=== PATIENT | male | born 1950 | race Two or more races ===

== ENCOUNTER 2024-11-30 15:41 | Emergency (ER) | payer MEDICARE, MEDICAID ==
[~2024-11-30] VITALS: Ht 167.6 cm; Wt 66.2 kg
[2024-11-30 15:49] VITALS: BP 135/76; PULSE 71; RESP 18; O2SAT 98
--- NOTE | 2024-11-30 17:05 | DVH ---
CLINICAL INDICATION: fall TECHNIQUE: 3 radiographic views of the left knee were obtained. Comparison: None FINDINGS/IMPRESSION: There is no evidence of acute fracture or dislocation. Narrowing of the medial compartment of the left knee is noted with chondrocalcinosis of the lateral m eniscus. The alignment is anatomical. There is no radiopaque foreign body. HS:Y
--- NOTE | 2024-11-30 17:13 | DVH ---
EXAM: CT HEAD WITHOUT CONTRAST HISTORY: fall COMPARISON: None TECHNIQUE: Axial images of the head were obtained and reformatted in coronal and sagittal planes. All CT scans at this medical facility are performed using dose modulation techniques as appropriate t o a performed exam including the following: Automated exposure control was utilized; adjustment of th e MA and/or KV according to patient size; and use of iterative reconstruction technique. CT Dose: CTDI volume is 54 mGy. Dose-length product is 971 mGy*cm FINDINGS: There is no evidence of acute intracranial hemorrhage, mass, mass effect midline shift. There is no h ydrocephalus or extra-axial fluid collection. 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 Mayo-white matter differentiation is otherwise maintained. The visualized paranasal sinuses and mastoid air cells are clear. The calvarium is intact. IMPRESSION: 1. No acute intracranial process. 2. 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 HS:Y
--- NOTE | 2024-11-30 18:09 | ED.PDOC ---
History of Present Illness HPI Comments 74-year-old male complaining of neck pain and left knee pain after having a fall five days ago. States he was carrying groceries in when he tripped falling to his right side hitting his left knee. Patient denies any loss of consciousness. States over the last few days he was feeling tightness in his neck and in his knee. Denies being on blood thinners. Chief Complaint: Fall Injury Time Seen by MD: 15:46 Primary Care Provider: ELSA Coronado Notes: Nurses Notes Allergies: Coded Allergies: NO KNOWN ALLERGIES (Unverified , 11/30/24) Information Source: Patient Mode of Arrival: Ambulatory Severity: Mild Timing: Days (5) Past Medical History PAST MEDICAL HISTORY: Denies Surgical History: Denies all surgeries Family History Family History: Reviewed,noncontributory to illness, No family hx of Cancer, No family hx of DM, No family hx of Heart patrizia, No family hx of HTN, No family hx ofKidney patrizia, No family hx of Liver patrizia, No family hx of Lung patrizia, No family hx of Stroke Constitutional: denies: chills, diaphoresis, fatigue, fever, malaise, sweats, weakness, others EENTM: denies: blurred vision, double vision, ear bleeding, ear discharge, ear drainage, ear pain, ear ringing, eye pain, eye redness, hearing loss, mouth pain, mouth swelling, nasal discharge, nose bleeding, nose congestion, nose pain, photophobia, tearing, throat pain, throat swelling, voice changes, others Respiratory: denies: cough, hemoptysis, orthopnea, SOB at rest, shortness of breath, SOB with excertion, stridor, wheezing, others Cardiovascular: denies: chest pain, dizzy spells, diaphoresis, Dyspnea on exertion, edema, irregular heart beat, left arm pain, lightheadedness, palpitations, PND, syncope, others Gastrointestinal: denies: abdomen distended, abdominal pain, blood streaked bowels, constipated, diarrhea, dysphagia, difficulty swallowing, hematemesis, melena, nausea, poor appetite, poor fluid intake, rectal bleeding, rectal pain, vomiting, others Musculoskeletal: reports: muscle pain, muscle stiffness Physical Exam General Appearance: No Apparent Distress, Normal HEENT: Normal ENT Inspection, Pharynx Normal, TMs Normal Neck: Full Range of Motion, Non-Tender, Normal, Normal Inspection Respiratory: Chest Non-Tender, Lungs Clear, No Accessory Muscle Use, No Respiratory Distress, Normal Breath Sounds Cardiovascular: No Edema, No JVD, No Murmur, No Gallop, Normal Peripheral Pulses, Regular Rate/Rhythm Breast Exam: Deferred Gastrointestinal: No Organomegaly, Non Tender, No Pulsatile Mass, Normal Bowel Sounds, Soft Genitalia: Deferred Pelvic: Deferred Rectal: Deferred Extremities: No calf tenderness, Normal capillary refill, Normal inspection, Normal range of motion, Non-tender, No pedal edema, Other (Able to ambulate without assistance. No obvious swelling noted to the left anterior knee) Musculoskeletal : Apperance: Normal Neurologic: Alert, change house attendant II-XII nml as Tested, No Motor Deficits, Normal Affect, Normal Mood, No Sensory Deficits Cerebellar Function: Normal Reflexes: Normal Skin: Dry, Normal Color, Warm Lymphatic: No Adenopathy Was a procedure done? Was a procedure done?: No Differential Dx Considerations may include: CVA, closed head injury, knee contusion, X-Ray, Labs, Meds, VS Vital Signs Date Time Temp Pulse Resp B/P (MAP) Pulse Ox O2 Delivery O2 Flow Rate FiO2 11/30/24 15:49 97.4 71 18 135/76 (95) 98 X-Ray, Labs, Meds, VS Comment Imaging: X-rays and CT scans were reviewed and interpreted by this provider, imaging shows no fractures and no pathological disease. Pending radiology review. Laboratory: Labs reviewed and interpreted by this provider. No significant abnormalities noted. Patient has prior medical visits reviewed. Med reconciliation performed Vital signs reviewed Time of 1ST Reevaluation: 18:08 Reevaluation 1ST: Improved Patient Education/Counseling: Diagnosis, Treatment, Need For Follow Up (Patient advised to follow-up in the emergency room in the next 24 to 48 hours if symptoms do not improve. Advised follow-up with PCP in the next 3 to 5 days. Patient verbalized understanding. ) Family Education/Counseling: Diagnosis, Treatment Departure 1 Departure Time of Disposition: 18:08 Impression: Primary Impression: Back strain Qualified Codes: S39.012A - Strain of muscle, fascia and tendon of lower back, initial encounter Additional Impression: Contusion of left knee Qualified Codes: S80.02XA - Contusion of left knee, initial encounter Disposition: 01 HOME / SELF CARE / HOMELESS Condition: Fair Discharged With: Self Critical Care Note Critical Care Time?: No Stability Stability form required: No Heart Score Heart Score: Heart Score Response (Comments) Value History N/A 0 EKG N/A 0 Age N/A 0 Risk Factors N/A 0 Troponin N/A 0 Total 0 CHETAN REYNA Nov 30, 2024 18:09
[2024-12-02] MEDS ORDERED: METF-370 PO (11:02)
[2024-12-02] MEDS ORDERED: DICL1GEL59 EX (11:02)
[2024-12-02] MEDS ORDERED: MULT-928 PO (11:02)
[2024-12-02] MEDS ORDERED: TAMS0.4C39 PO (11:02)
[2024-12-02] MEDS ORDERED: CHOL20007 PO (11:02)
[2024-12-02] MEDS ORDERED: GLIP5TAB21 PO (11:02)
[2024-12-02] MEDS ORDERED: TRAM50TA2 PO (11:02)
[2024-12-02] MEDS ORDERED: ACET650T12 PO (11:02)
[2024-12-02] MEDS ORDERED: METO-6 PO (11:02)
[2024-12-02] MEDS ORDERED: FIN5T PO (11:02)
[2024-12-02] MEDS ORDERED: MAGN1TAB29 PO (11:02)
[2024-12-02] MEDS ORDERED: LISI-275 PO (11:02)
[2024-12-02] MEDS ORDERED: DONE5TAB11 PO (11:02)
[2024-12-02] MEDS ORDERED: DONE10TA9 PO (11:02)
[2024-12-02] MEDS ORDERED: ROSU40TA81 PO (11:02)
[2024-12-02] MEDS ORDERED: PANT40TA2 PO (11:02)
[2024-12-02] MEDS ORDERED: FERR325T24 PO (11:02)
[2024-12-02] MEDS ORDERED: ASPI-543 PO (11:30)
== END 2024-11-30 18:20 | disposition home or self-care (01) ==
LOC: ER 15:41
DX: S39.012A Strain of muscle, fascia and tendon of lower back, initial encounter (principal); S80.02XA Contusion of left knee, initial encounter; W01.0XXA Fall on same level from slipping, tripping and stumbling without subsequent striking against object, initial encounter; Y93.89 Activity, other specified; Y92.89 Other specified places as the place of occurrence of the external cause; Y99.8 Other external cause status
CPT/HCPCS: 70450; 73562

== ENCOUNTER 2024-12-03 10:08 | Day surgery (SDC) | payer MEDICARE, MEDICAID ==
[2024-12-02 11:57] LABS: Urine Bacteria None Seen /hpf (None Seen)
[2024-12-02 12:12] LABS: Urine Blood Negative /uL (Negative); Urine Clarity Clear (Clear); Urine Color Yellow (Yellow); Urine Protein, UAD TRACE (Negative); Urine Specific Gravity 1.023 (1.001-1.035); Urine Squamous Epithelial Cell None Seen /hpf (<5); Urine Urobilinogen Normal (Negative); Urine WBC <1 /hpf (0 - 3); Urine pH 5.5 (5.0-9.0)
[2024-12-02 12:19] LABS: INR 1.02 (0.9-1.15); Partial Thromboplastin Time 27.5 SEC (24.5-34.5); Prothrombin Time 10.8 sec (9.3-11.8)
[~2024-12-03] VITALS: Ht 167.6 cm; Wt 65.3 kg
[~2024-12-03 10:08] MED LIST: ACET650T12 PO; ASPI-543 PO; CHOL20007 PO; DICL1GEL59 EX; DONE10TA9 PO; DONE5TAB11 PO; FERR325T24 PO; FIN5T PO; GLIP5TAB21 PO; LISI-275 PO; MAGN1TAB29 PO; METF-370 PO; METO-6 PO; MULT-928 PO; PANT40TA2 PO; ROSU40TA81 PO; TAMS0.4C39 PO; TRAM50TA2 PO
[2024-12-03] MEDS ORDERED: PROPOFOL 10 MG/ML 20 ML IV ONE (10:36)
[2024-12-03] MEDS ORDERED: fentaNYL CITRATE 100 MCG/2 ML VL ONE (10:36)
[2024-12-03] MEDS ORDERED: ePHEDrine SULFATE 50 MG/ML AMP ONE (11:33)
[2024-12-03 11:48] VITALS: PULSE 84; RESP 13; TEMP 96.5; O2SAT 98
[2024-12-03 12:50] VITALS: BP 137/78; PULSE 76; RESP 17; O2SAT 97
--- NOTE | 2024-12-03 15:15 | DVHOP2 ---
Operative Report DATE OF OPERATION: 12/03/24 PROCEDURE: Upper Endoscopy with biopsy. PREOPERATIVE INDICATION: The patient is a 74 -year-old male undergoing endoscopy for anemia POSTOPERATIVE DIAGNOSES: 1. 2 cm sliding-type hiatal hernia slightly irregular squamocolumnar junction no significant erosive esophagitis 2. Mild gastritis and lmai-[id number]-[id number] duodenitis of the duodenal bulb PROCEDURE PERFORMED BY: Sae Delcid GI NURSE: Courtney SCOPE: Olympus videoendoscope. ASA CLASS: 2 PREOPERATIVE MEDICATIONS: Mac pasha, Dr. Jiménez PROCEDURE IN DETAIL: After obtaining an informed consent, the patient was placed on left lateral decubitus position. The patient was then sedated with the above medications. A bite block was placed between his teeth. The endoscope was then passed through the oropharynx, into the esophagus, and through the stomach and pylorus up to the second and third part of the duodenum. The endoscope was then withdrawn. The 2nd and 3rd part of the duodenum were normal in the duodenal bulb showed moderate duodenitis. Duodenal biopsies were obtained. The pre-pyloric area and antrum showed mild gastritis. On On retroflexion the fundus cardia and angularis were normal. Gastric biopsies were obtained The endoscope was then withdrawn into the distal esophagus where the patient had a 2 cm sliding-type hiatal hernia There was no significant erosive esophagitis and slightly irregular squamocolumnar junction. The remaining distal and proximal esophagus and oropharynx were unremarkable. The patient tolerated the procedure well without difficulty. COMPLICATIONS : None SPECIMENS: Duodenal biopsies Gastric biopsies DISPOSITION: Stable D/C to home PLAN: 1. Await for biopsy result 2. Will place pt on Protonix 40 mg p.o. daily 3. Lifestyle modifications for GERD 4. Outpatient follow up with me in 4-6 weeks to review results and discuss further management SAE DELCID MD Dec 03, 2024 15:15
--- NOTE | 2024-12-03 15:19 | DVHOP2 ---
Operative Report DATE OF OPERATION: 12/03/24 PROCEDURE: Diagnostic Colonoscopy. PREOPERATIVE INDICATION: The patient is a 74 -year-old male undergoing colonoscopy for evaluation of anemia POSTOPERATIVE DIAGNOSES: 1. Patient had zixg-hq-ivxvdurd tortuosity and redundancy of the colon especially involving the splenic flexure and the sigmoid colon area 2. It was a limited study due to poor prep however after irrigation aspiration was a grossly normal examination up to the cecum and terminal ileum 3. Trace to small internal hemorrhoid PROCEDURE PERFORMED BY: Sae Delcid M.D. SCOPE: Olympus videocolonoscope. ASA CLASS: 2. PREOPERATIVE MEDICATIONS: Mac sedationDr. Jiménez PROCEDURE IN DETAIL: After obtaining an informed consent, the patient was placed on left lateral decubitus position. He was then sedated with the above medications. A rectal examination was performed that was normal. The colonoscope was then passed through the anus into the rectosigmoid and through the descending, transverse, and ascending colon up to the cecum with visualization of the appendiceal orifice, base of the cecum and the ileocecal valve. The colonoscope was then withdrawn. No polyps or masses were seen. There was no colitis or diverticular disease. Patient had tortuosity and redundancy of the colon It was a limited study due to poor. After irrigation aspiration however no gross lesions were seen Patient had iqan-oq-vlkxetke tortuosity of the colon especially involving the splenic flexure transverse colon and sigmoid pureed area On retroflexion and straight on view he had trace to 1+ internal hemorrhoids The patient tolerated the procedure well without difficulty. WITHDRAWAL TIME: 7 minute QUALITY OF THE PREP: [place] Bowel Prep score: 7. COMPLICATIONS : None SPECIMENS: None DISPOSITION: Stable D/C to home PLAN: 1. Repeat colonoscopy in 7-10 years, review last colonoscopy results 2. Resume GI soft diet advance as tolerated 3. Increase fluid and fiber intake 4. Outpatient follow up with me in 4-6 weeks to review results and discuss further management SAE DELCID MD Dec 03, 2024 15:19
== END 2024-12-03 12:20 | disposition home or self-care (01) ==
LOC: GI 10:08
PROVIDERS: ATTEND Internal Medicine Gastroenterology
DX: D64.9 Anemia, unspecified (principal); K21.9 Gastro-esophageal reflux disease without esophagitis; K29.50 Unspecified chronic gastritis without bleeding; K29.80 Duodenitis without bleeding; K44.9 Diaphragmatic hernia without obstruction or gangrene; K64.0 First degree hemorrhoids; Q43.8 Other specified congenital malformations of intestine; I25.10 Atherosclerotic heart disease of native coronary artery without angina pectoris; Z95.1 Presence of aortocoronary bypass graft; Z79.899 Other long term (current) drug therapy; Z98.890 Other specified postprocedural states
CPT/HCPCS: 36415; 43239; 45378; 81001; 85610; 85730; 88305; 88312; 88342; J2704; J3010; J7030